=== PATIENT | male | born 1965 | race Caucasian/White ===

== ENCOUNTER 2022-07-26 11:42 | Emergency (ER) | payer MEDICAID, OTHER ==
[2022-07-26] MEDS ORDERED: Sodium Chloride 0.9% 10 ML Syringe FLUSH PRN (12:01)
[2022-07-26] MEDS: Aspirin 81 MG Tab.Chew PO STA (12:14)
[2022-07-26] MEDS: Ondansetron 4 MG/2 ML SDV IVPUSH ONE (12:24)
[2022-07-26 12:37] LABS: ESTIMATED GFR 103 mL/min (>60)
[2022-07-26] MEDS: Meclizine 25 MG Tab PO ONE (13:30)
== END 2022-07-26 14:08 | disposition home or self-care (01) ==
LOC: FB.ED 11:42
DX: R07.89 Other chest pain (principal); Z88.1 Allergy status to other antibiotic agents
CPT/HCPCS: 36415; 80053; 83880; 84484; 85025; 85610; 85730; 93005; 96374; 99285-25; A9270-GY; J2405

== ENCOUNTER 2024-03-31 14:31 | Emergency (ER) | payer OTHER, MEDICARE ==
[2024-03-31] MEDS: Ketorolac 15 MG/ML SDV IVPUSH ONE (15:31)
[2024-03-31] MEDS: Sodium Chloride 0.9% 10 ML Syringe FLUSH PRN (15:32)
[2024-03-31 15:33] LABS: BLOOD UREA NITROGEN,BUN 9 mg/dL (7-18); CALCIUM 8.9 mg/dL (8.6-10.2); CARBON DIOXIDE,CO2 29 mmol/L (21-32); CHLORIDE,CL 106 mmol/L (100-110); CREATININE 0.9 mg/dL (0.70-1.30); EST CRCL DRUG DOSING (CG) 88.38 mL/min; ESTIMATED GFR 98 mL/min (>60); GLUCOSE RANDOM 87 mg/dL (80-116); SODIUM,NA 143 mmol/L (135-145)
[2024-03-31 15:39] LABS: A/G RATIO 1.3; ALANINE AMINOTRANSFERASE,ALT 40 U/L (12-36); ALBUMIN 3.8 g/dL (3.5-5.2); ALKALINE PHOSPHATASE 81 IU/L (56-112); AMYLASE 57 U/L (25-115); ASPARTATE AMNIOTRANSFERASE,AST 24 IU/L (5-25); BILIRUBIN TOTAL 1.3 mg/dL (0.1-1.3); C-REACTIVE PROTEIN 0.52 mg/dL (<0.50); MAGNESIUM 1.9 mg/dL (1.8-2.5); PROTEIN TOTAL,TP 6.8 g/dL (6.0-8.0)
== END 2024-03-31 17:10 | disposition home or self-care (01) ==
LOC: FB.ED 14:31
DX: R10.31 Right lower quadrant pain (principal); E66.9 Obesity, unspecified; Z87.891 Personal history of nicotine dependence; Z86.16 Personal history of COVID-19; Z79.899 Other long term (current) drug therapy; Z88.1 Allergy status to other antibiotic agents; Z68.43 Body mass index [BMI] 50.0-59.9, adult
CPT/HCPCS: 74176; 80053; 82150; 83605; 83690; 83735; 86140; 96374; 99284; J1885

== ENCOUNTER 2025-02-16 16:21 | Emergency (ER) | payer OTHER, MEDICARE ==
[2025-02-16] MEDS ORDERED: Sodium Chloride 0.9% 10 ML Syringe FLUSH PRN (16:57)
[2025-02-16 17:19] LABS: BASOPHILS ABSOLUTE AUTO 0.1 x10-3/uL (0.0-0.3); BASOPHILS PERCENT AUTO 0.9 % (0.3-3.8); EOSINOPHILS ABSOLUTE AUTO 0.2 x10-3/uL (0.0-0.6); EOSINOPHILS PERCENT AUTO 2.0 % (0.1-6.8); LYMPHOCYTES ABSOLUTE AUTO 2.7 x10-3/uL (0.5-4.5); LYMPHOCYTES PERCENT AUTO 32.7 % (15.8-45.3); MEAN PLATELET VOLUME 7.5 fL (6.7-11.0); MONOCYTES ABSOLUTE AUTO 1.1 x10-3/uL (0.0-1.2); MONOCYTES PERCENT AUTO 14.0 % (5.5-15.2); NEUTROPHILS ABSOLUTE AUTO 4.1 x10-3/uL (1.7-6.9); NEUTROPHILS PERCENT AUTO 50.4 % (40.3-71.8); PLATELET COUNT,PLT 238 x10(3)uL (117-477); RED BLOOD CELL COUNT 5.09 x10(6)uL (3.90-5.90); RED CELL DISTRIBUTION WIDTH 14.2 % (12.4-15.0); WHITE BLOOD CELL COUNT,WBC 8.1 x10-3/uL (3.2-10.1)
[2025-02-16 17:22] LABS: GLUCOSE,URINE NORMAL (NORMAL); OCCULT BLOOD,URINE NEGATIVE (NEGATIVE)
[2025-02-16] MEDS: Ketorolac 30 MG/ML SDV IVPUSH ONE (17:22)
[2025-02-16 17:23] LABS: APPEARANCE,URINE CLEAR (CLEAR); BLOOD UREA NITROGEN,BUN 12 mg/dL (7-18); CARBON DIOXIDE,CO2 32 mmol/L (21-32); CHLORIDE,CL 103 mmol/L (100-110); CREATININE 0.9 mg/dL (0.70-1.30); EST CRCL DRUG DOSING (CG) 90.12 mL/min; ESTIMATED GFR 98 mL/min (>60); GLUCOSE RANDOM 97 mg/dL (80-116); POTASSIUM,K 4.0 mmol/L (3.5-5.3); SODIUM,NA 140 mmol/L (135-145)
[2025-02-16] MEDS: Ondansetron 4 MG/2 ML SDV IVPUSH ONE (17:23)
[2025-02-16 17:29] LABS: A/G RATIO 1.0; ALANINE AMINOTRANSFERASE,ALT 37 U/L (12-36); ASPARTATE AMNIOTRANSFERASE,AST 22 IU/L (5-25); BILIRUBIN TOTAL 1.2 mg/dL (0.1-1.3); PROTEIN TOTAL,TP 7.4 g/dL (6.0-8.0)
[2025-02-16] MEDS ORDERED: Iopamidol 755 Mg/ML 100 ML Bottle IV SCH (18:00)
== END 2025-02-16 18:43 | disposition home or self-care (01) ==
LOC: FB.ED 16:21
DX: M51.360 Other intervertebral disc degeneration, lumbar region with discogenic back pain only (principal); K76.0 Fatty (change of) liver, not elsewhere classified; Z88.1 Allergy status to other antibiotic agents; Z79.899 Other long term (current) drug therapy; Z86.16 Personal history of COVID-19; Z90.49 Acquired absence of other specified parts of digestive tract
CPT/HCPCS: 36415; 74177; 80053; 81003; 83690; 85025; 96361; 96374; 96375; 99284; J1885; J2405; J7030